=== PATIENT | male | born 2000 | race Caucasian/White ===

== ENCOUNTER 2022-03-01 02:06 | Emergency (ER) | payer OTHER ==
[2022-03-01 02:25] VITALS: BP 144/86; PULSE 56; TEMP 97.5; BMI 25.8
[2022-03-01] MEDS ORDERED: DEXAMETHASONE SOD PHOSPHATE 10 MG/1 ML VIAL IM ONE (02:38)
[2022-03-01] MEDS ORDERED: DEXAMETHASONE SOD PHOSPHATE 10 MG/1 ML VIAL ONE (02:43)
== END 2022-03-01 03:19 | disposition home or self-care (01) ==
LOC: JER 02:06
PROC: 3E023GC Introduction of Other Therapeutic Substance into Muscle, Percutaneous Approach (ICD-10-PCS; principal; 2022-03-01)
DX: T78.40XA Allergy, unspecified, initial encounter (principal)
CPT/HCPCS: 96372; 99284-25; J1100

== ENCOUNTER 2024-05-30 18:40 | Emergency (ER) | payer OTHER ==
[2024-05-30 19:01] VITALS: BP 123/77; PULSE 56; RESP 18; TEMP 98.6
== END 2024-05-30 19:21 | disposition home or self-care (01) ==
LOC: FER 18:40
DX: Z77.21 Contact with and (suspected) exposure to potentially hazardous body fluids (principal); Z00.00 Encounter for general adult medical examination without abnormal findings
CPT/HCPCS: 99283-25